=== PATIENT | male | born 1975 | race Caucasian/White ===

== ENCOUNTER 2020-07-24 09:09 | Outpatient (CLI) | payer OTHER, SELFPAY ==
--- NOTE | ~2020-07-24 | CT_ITS ---
EXAMINATION: CT sinus wo con DATE: 07/24/2020 09:39 INDICATION: Chronic congestion. Chronic sinusitis. TECHNIQUE: Computed tomography (CT) of the paranasal sinuses was performed without contrast. Iterativ e reconstruction technique was employed. Exam dose: 334.42 mGy-cm total exam DLP. COMPARISON: None FINDINGS: There is rightward deviation of nasal septum. There is asymmetric soft tissue swelling of the left inferior nasal turbinate. Intralamellar cell of left middle nasal turbinate. There is mild soft tissue thickening but patency of the left infundibulum and remainder of ostiomeata l unit. The right ostiomeatal unit is patent. Approximately 1.5 cm polyp or mucous retention cyst in the posterior floor of the left maxillary sinu s. Smaller mucous retention cyst or polyp at the anterolateral base of the left maxillary sinus. Approximately 11 mm mucous retention cyst or polyp of the anterior wall of the right sphenoid sinus. Smaller opacity at the anterior wall of the left sphenoid sinus. The frontal sinuses and ethmoid air cells are unremarkable. Normal development and aeration of the mastoid air cells. Middle and inner ear apparatus appear normal bilaterally. IMPRESSION: Rightward deviation of nasal septum Asymmetric soft tissue swelling left inferior nasal turbinate Intralamellar cell of left middle nasal turbinate Occasional focal opacities of the maxillary and sphenoid sinuses most consistent with mucous retentio n cysts or polyps Mild soft tissue thickening but patency of the left infundibulum; otherwise normal ostiomeatal units Reviewed, dictated and finalized at [facility]. Reviewed, dictated and finalized at [facility]. IMPRESSION: Rightward deviation of nasal septum Asymmetric soft tissue swelling left inferior nasal turbinate Intralamellar cell of left middle nasal turbinate Occasional focal opacities of the maxillary and sphenoid sinuses most consisten t with mucous retention cysts or polyps Mild soft tissue thickening but patency of the left infundibulum; otherwise nor mal ostiomeatal units
== END 2020-07-24 09:10 | disposition home or self-care (01) ==
PROVIDERS: PCP Family Medicine; Visit Provider Otolaryngology
DX: J32.9 Chronic sinusitis, unspecified (principal); J34.2 Deviated nasal septum
CPT/HCPCS: 70486

== ENCOUNTER → 2022-08-10 10:23 | Outpatient (CLI) | payer OTHER, SELFPAY ==
--- NOTE | ~2022-08-10 | XR_ITS ---
EXAMINATION: XR hip RT min 2V DATE: 08/10/2022 10:57 INDICATION: Right hip pain TECHNIQUE: Two views of right hip were obtained. COMPARISON: None. FINDINGS: There is moderate narrowing in the superolateral aspect of the right hip joint. Bone alignm ent is normal. There is no fracture. IMPRESSION: 1. Moderate osteoarthritis of the hip. Reviewed, dictated and finalized at [facility].
== END ==
PROVIDERS: PCP Family Medicine; Visit Provider Chiropractor Rehabilitation
DX: M16.11 Unilateral primary osteoarthritis, right hip (principal)
CPT/HCPCS: 73502

== ENCOUNTER 2023-08-16 14:05 | Outpatient (CLI) | payer OTHER, SELFPAY ==
--- NOTE | ~2023-08-16 | XR_ITS ---
Left Shoulder Technique: AP and axillary views were obtained. Clinical History: Pain Findings: No fracture or dislocation is seen. Osseous alignment is anatomic. The glenohumeral and acr omioclavicular joint spaces are preserved. Soft tissues are unremarkable. Impression: Unremarkable left shoulder radiographs. Reviewed, dictated and finalized at [facility]. Impression: Unremarkable left shoulder radiographs.
== END 2023-08-16 14:06 ==
PROVIDERS: PCP Chiropractor Rehabilitation; Visit Provider Chiropractor Rehabilitation
DX: M25.512 Pain in left shoulder (principal)
CPT/HCPCS: 73030

== ENCOUNTER 2024-10-28 04:23 | Day surgery (SDC) | payer OTHER, SELFPAY ==
[2024-10-26 11:48] VITALS: BMI 47.8
[2024-10-28 09:38] VITALS: PULSE 70; RESP 20; TEMP 36.4; O2SAT 99
[2024-10-28 09:53] VITALS: BP 199/95
--- NOTE | 2024-10-28 09:54 | P.PNAN_ITS ---
Anes - Initial Pre Proc Eval Procedure: Operation Date: 10/28/24 10:00 Proposed Procedures p Diagnostic Colonoscopy - James Boykin MD Date/Time: 10/28/24 09:54 Surgeon: James Boykin MD Pre Op Diagnosis: Diarrhea, unspecified Patient Data Age: 49 Gender: M Height: 1.75 m Weight: 143.4 kg Last Vital Signs Temp 36.4 C L 10/28/24 09:38 Pulse 70 10/28/24 09:38 Resp 20 10/28/24 09:38 BP 199/95 H 10/28/24 09:53 Pulse Ox 99 10/28/24 09:38 O2 Del Method Room Air 10/28/24 09:38 Allergies Allergy/AdvReac Type Severity Reaction Status Date / Time No Known Allergies Allergy Verified 10/28/24 09:29 Home Medications ?Medication ?Instructions ?Recorded ?Confirmed ?Type azelastine 137 mcg (0.1 %) nasal 1 spray intranasal Q1 2H #30 mL 05/11/20 10/26/24 Rx spray fluticasone propionate 50 See Rx Instructions .Route 0 09/05/20 10/26/24 Rx mcg/actuation nasal .COMPLEX #16 grams spray,suspension irbesartan 300 mg tablet 300 mg PO DAILY #30 tabs 10/28/24 Rx diphenoxylate-atropine 2.5 1 tablet PO TID PRN diarrhe a #14 10/01/24 10/26/24 Rx mg-0.025 mg tablet (Lomotil) tabs cholestyramine 4 gram oral powder 4 g PO DAILY PRN loo se stool #231 10/21/24 10/26/24 Rx (Cholestyramine Light) grams metoprolol succinate 25 mg 25 mg PO DAILY #30 tabs 10/28/24 Rx tablet,extended release 24 hr Patient hx anesthesia problems: none Family hx anesthesia problems: none Results Review: All pre-operative results and documents have been reviewed as part of the pre- operative evaluation. [facility] Past Medical History Medical History Obese Bowel habit changes Diarrhea Varicella HLD (hyperlipidemia) Pancreatitis Sleep apnea Hypertension Family History Family History Other Cerebrovascular accident Hypertension Social History Social History Smoking status: Never smoker Second hand tobacco smoke exposure: No Alcohol intake: current Alcohol use details: social Substance use: never Substance use type: does not use Anes - Eval Final PreProcedure Day of Procedure 10/28/24 09:54 Patient weight: morbidly obese Heart: regular rate and rhythm Lungs: clear to auscultation Airway: Mallampati scale class III Neurological: alert and oriented Last oral intake: >/= 8 hours ASA classification: III Emergent: no Anesthetic plan: proceed Anesthesia type and monitoring: general GIVS and standard monitoring Results Review: All pre-operative results and documents have been reviewed as part of the pre- operative evaluation. Informed Consent: The patient's anesthetic plan and its attendant risks and benefits were discussed with the patient/family/POA. Questions were solicited and answers provided to the satisfaction of the patient/family/POA.
[2024-10-28] MEDS: LACTATED RINGERS 1,000 ML 150 ML IV CONT (10:12)
--- NOTE | 2024-10-28 10:16 | SUR.PREOP ---
This patients blood pressure is 199/95, all other vitals within normal limits, the pt. reports taking his blood pressure medications this morning at 0700, Dr. Balderrama notified, no new orders at this time, will continue to monitor.
--- NOTE | 2024-10-28 10:32 | WPDHPUPDATE1 ---
History and Physical Update Update Date/Time: 10/28/24 10:32 History and Physical has been reviewed, including an updated exam of the patient. There are NO changes in the patient's condition. Risks, benefits, and alternatives have been discussed and questions answered. Patient agrees to proceed with procedure.
--- NOTE | 2024-10-28 10:40 | S_PTH ---
PATIENT: Zion Jefferson LOC: [facility]#:[id number] AGE/SX: 49/M ROOM: RE10/28/[address]: James Boykin MD : 1975 BED: DIS: 10/28/2024 SPEC #: [id number] RECD: 10/28/24 13:37 STATUS: CARLOS ALBERTO REQ #: [id number] RADHA: 10/28/24 10:[address]: James Boykin DEPT: [facility] Surgical RECD BY: Verena Trinidad ENTERED: 10/28/24 13:37 SP TYPE: Surgical OTHR DR: Julita MarquesMD Tissues: A - Colon Biopsy Procedures: Hematoxylin and Eosin Stain Gross and Microscopic Level 4
[2024-10-28 10:46] VITALS: BP 166/75; PULSE 69; RESP 19; O2SAT 97
[2024-10-28 10:56] VITALS: BP 161/79; PULSE 64; RESP 16; O2SAT 96
[2024-10-28 11:06] VITALS: BP 167/91; PULSE 64; RESP 17; O2SAT 98
--- NOTE | 2024-10-28 11:15 | SUR.PHASEII ---
Patient stated blood pressure is usually high and is asymptomatic stating, I feel fine. Patient educated and given physician's number for any concerns or questions.
== END 2024-10-28 11:24 | disposition home or self-care (01) ==
PROVIDERS: PCP Family Medicine; Referring Provider Nurse Practitioner Family; Visit Provider Internal Medicine Gastroenterology
PROC: 0DJD8ZZ Inspection of Lower Intestinal Tract, Via Natural or Artificial Opening Endoscopic (ICD-10-PCS; CPT 45378; principal; 2024-10-28 10:00)
DX: K57.30 Diverticulosis of large intestine without perforation or abscess without bleeding (principal); K64.8 Other hemorrhoids; K21.9 Gastro-esophageal reflux disease without esophagitis; E78.5 Hyperlipidemia, unspecified; I10 Essential (primary) hypertension; G47.30 Sleep apnea, unspecified; E66.01 Morbid (severe) obesity due to excess calories; Z68.42 Body mass index [BMI] 45.0-49.9, adult; Z87.19 Personal history of other diseases of the digestive system
CPT/HCPCS: 45380; 88305; J2003; J2704; J7120